=== PATIENT | female | born 1995 | race Caucasian/White ===

== ENCOUNTER 2017-10-04 13:05 | Emergency (ER) | payer MEDICAID ==
[~2017-10-04] VITALS: Ht 157.5 cm; Wt 75.0 kg
[2017-10-04 13:28] VITALS: BP 119/69
== END 2017-10-04 14:11 | disposition home or self-care (01) ==
LOC: ER 13:05
DX: J20.8 Acute bronchitis due to other specified organisms (principal); Z98.890 Other specified postprocedural states; Z88.0 Allergy status to penicillin
CPT/HCPCS: 99282

== ENCOUNTER 2017-11-16 10:43 | Emergency (ER) | payer MEDICAID ==
[~2017-11-16] VITALS: Ht 157.5 cm; Wt 73.0 kg
[2017-11-16 11:46] VITALS: BP 114/75
== END 2017-11-16 15:53 | disposition home or self-care (01) ==
LOC: ER 11:48
DX: J06.9 Acute upper respiratory infection, unspecified (principal); Z88.0 Allergy status to penicillin
CPT/HCPCS: 99283

== ENCOUNTER 2017-12-18 10:07 | Emergency (ER) | payer MEDICAID ==
[~2017-12-18] VITALS: Ht 157.5 cm; Wt 82.0 kg
[2017-12-18 10:20] VITALS: BP 116/65
[2017-12-18 12:20] LABS: KETONES URINE NEGATIVE (NEGATIVE); LEUKOCYTE ESTERASE URINE 1+ (NEGATIVE); NITRITE URINE NEGATIVE (NEGATIVE); OCCULT BLOOD URINE 3+ (NEGATIVE); PH URINE 5.5 (4.5-8.0); PROTEIN URINE 2+ (NEGATIVE); SPECIFIC GRAVITY URINE 1.029 (1.005-1.030); UROBILINOGEN URINE 0.2 E.U./dL (0.2-1.0)
[2017-12-18 12:24] LABS: CLARITY URINE CLOUDY (CLEAR); COLOR URINE RED (YELLOW)
== END 2017-12-18 12:47 | disposition home or self-care (01) ==
LOC: ER 10:41
DX: M54.42 Lumbago with sciatica, left side (principal); M54.41 Lumbago with sciatica, right side; Z88.0 Allergy status to penicillin
CPT/HCPCS: 81001; 81025; 87086; 99284

== ENCOUNTER 2019-05-29 06:14 | Emergency (ER) | payer MEDICAID ==
[~2019-05-29] VITALS: Ht 157.5 cm; Wt 82.0 kg
[2019-05-29 06:26] VITALS: BP 119/83
[2019-05-29] MEDS ORDERED: ONDANSETRON 4MG ODT PO STA (07:46)
[2019-05-29] MEDS ORDERED: FAMOTIDINE 20MG TABLET PO ONE (08:00)
[2019-05-29 08:13] LABS: BASOPHILS % 0.5 % (0.0-2.0); EOSINOPHILS % 0.5 % (0.0-5.0); HEMATOCRIT. 43.3 % (36.0-48.0); HEMOGLOBIN. 14.5 g/dL (12.0-16.0); LYMPHOCYTES % 22.8 % (20.0-50.0); MEAN CORPUSCULAR HEMOGLOBIN 30.6 pg (28.0-32.0); MEAN CORPUSCULAR VOLUME 91.1 fL (81.0-99.0); MEAN PLATELET VOLUME 11.1 fl (7.4-10.4); MONOCYTES % 5.1 % (2.0-8.0); NEUTROPHILS % 71.1 % (40.0-76.0); PLATELET 128 x1000/uL (130-400); RED BLOOD CELL COUNT 4.76 mill/uL (4.2-5.4); RED CELL DISTRIBUTION WIDTH 13.3 % (11.6-14.6)
[2019-05-29 08:17] LABS: CLARITY URINE CLOUDY (CLEAR); COLOR URINE AMBER (YELLOW); KETONES URINE NEGATIVE (NEGATIVE); LEUKOCYTE ESTERASE URINE NEGATIVE (NEGATIVE); NITRITE URINE NEGATIVE (NEGATIVE); OCCULT BLOOD URINE NEGATIVE (NEGATIVE); PH URINE 5.5 (4.5-8.0); PROTEIN URINE NEGATIVE (NEGATIVE); SPECIFIC GRAVITY URINE 1.031 (1.005-1.030); UROBILINOGEN URINE 0.2 E.U./dL (0.2-1.0)
[2019-05-29 08:21] LABS: CHLORIDE 108 mEq/L (98-107)
== END 2019-05-29 09:06 | disposition home or self-care (01) ==
LOC: ER 06:14
DX: K29.70 Gastritis, unspecified, without bleeding (principal)
CPT/HCPCS: 36415; 80053; 81003; 81025; 83690; 85025; 93005; 99284; Q0162